=== PATIENT | female | born 2000 | race Two or more races ===

== ENCOUNTER 2024-08-06 02:20 | Emergency (ER) | payer OTHER, SELFPAY ==
[2024-08-06 02:42] VITALS: BP 110/76; PULSE 115; PULSE 99; RESP 20; TEMP 37.1; O2SAT 98; BMI 24.6
[2024-08-06 02:48] VITALS: BP 110/76; PULSE 99; RESP 20; TEMP 37.1; O2SAT 98
[2024-08-06 02:51] LABS: Appearance Urine Cloudy; Color Urine Dark Yellow; Glucose Urine UA Negative (Negative); Leukocyte Esterase Urine Trace (Negative); Nitrite Urine Negative (Negative); PH 5.5 (5.0-9.0); Specific Gravity - Urine >= 1.030 (1.005-1.025); UMIC TRIGGER UACC YES; Urine Blood Negative (Negative); Urine Ketones 15 mg/dL (Negative); Urine Protein 300 (3+) mg/dL (Neg-Trace)
[2024-08-06 02:52] LABS: UPreg QC Valid YES; Urine Pregnancy NEGATIVE (NEGATIVE)
[2024-08-06 03:02] LABS: Amphetamine Screen Urine Not Detected (Not Detect); Barbiturates, Urine Not Detected (Not Detect); Benzodiazepines Screen Urine Not Detected (Not Detect); Buprenorphine Scr Not Detected (Not Detect); Cannabinoid Screen Urine POSITIVE (Not Detect); Cocaine Screen Urine Not Detected (Not Detect); Fentanyl, urine Not Detected (Not Detect); Methadone Screen, Urine Not Detected (Not Detect); Opiate Screen Urine Not Detected (Not Detect); Oxycodone Screen Urine Not Detected (Not Detect); Phencyclidine Screen Urine Not Detected (Not Detect)
[2024-08-06 03:05] LABS: Bacteria Urine 3+ (None Seen); Granular Casts Urine Present; Hyaline Casts Urine >20 /LPF (0-2); Squamous Epithelial Cell Urine >20 /HPF (0-2); WBC Urine 0-5 /HPF (0-5)
[2024-08-06 03:09] LABS: MANUAL DIFF FLAG NO
[2024-08-06 03:10] LABS: Basophils Percent Auto 0.3 % (0-2); Eosinophils Absolute Auto 0.1 X10*3/uL (0.0-0.4); Hematocrit 41.7 % (37.0-47.0); Hemoglobin 13.2 g/dl (12.0-16.0); Imm Gran Abs Auto 0.04 X10*3/uL (0.00-0.03); Imm Gran Pct Auto 0.3 % (0.0-0.4); Lymphocytes Absolute Auto 2.5 X10*3/uL (1.2-4.9); Lymphocytes Percent Auto 21.9 % (20-40); Mean Corpuscular HGB Conc 31.7 g/dl (31.0-35.0); Mean Corpuscular Hemoglobin 24.6 pg (27.0-33.0); Mean Corpuscular Volume 77.7 fL (80.0-98.0); Mean Platelet Volume 11.2 fL (9.4-12.3); Monocytes Absolute Auto 0.7 X10*3/uL (0.1-1.2); Neutrophils Absolute Auto 8.2 x10*3/uL (2.0-8.3); Neutrophils Percent Auto 70.5 % (45-73); Platelet Count 296 X10*3/uL (160-400); Red Blood Count 5.37 X10*6/uL (4.20-5.50); Red Cell Distribution Width 17.2 % (11.0-16.0); White Blood Count 11.6 X10*3/uL (4.8-10.8)
[2024-08-06 03:26] LABS: Alanine Aminotransferase 49 U/L (0-31); Albumin Level 4.7 g/dL (3.5-5.0); Alkaline Phosphatase 56 U/L (39-117); Anion Gap 15 (12-20); Aspartate Amino Transferase 27 U/L (5-31); Bilirubin Total 0.7 mg/dL (0.0-1.0); Blood Urea Nitrogen 9 mg/dL (9-16); Calcium 9.9 mg/dL (8.4-10.2); Carbon Dioxide 22 mmol/L (22-29); Chloride 110 mmol/L (96-108); Creatinine Clr Calc Pharmacy 87.7; Estimated Glomerular Filt Rate > 60; Ethanol < 10 mg/dL; Glucose Random 98 mg/dL (60-115); Potassium 4.6 mmol/L (3.3-5.1); Sodium 142 mmol/L (135-145)
--- NOTE | 2024-08-06 05:35 | ED_ITS ---
HPI - Psych General Chief Complaint: Psychiatric Symptoms Stated Complaint: SI Statements Time Seen by Provider: 08/06/24 05:26 Source: patient and EMS Mode of arrival: EMS Limitations: no limitations History of Present Illness ED Provider: Dr. Arminda Ag HPI Narrative: Patient comes to the emergency room complaining of suicidal ideation. Patient states that she is very upset that she does not have custody of her children. Patient made suicidal statements. Patient tells me that she said this out of anger but did not been hurting her. Patient admits that in the past when she was in high school she considered suicide and attempted cutting herself and also strangling herself. Patient states that she was very frustrated today, she scratched her face to relief pressure. Patient denies taking any drugs or alcohol. Related Data Allergies Allergy/AdvReac Type Severity Reaction Status Date / Time banana [BANANA] Allergy Unknown ANAPHYLAXIS Unverified 08/06/24 03:05 broccoli [BROCCOLI] Allergy Unknown ANAPHYLAXIS Unverified 08/06/24 03:05 kiwi [KIWI] Allergy Unknown ANAPHYLAXIS Unverified 08/06/24 03:05 latex [LATEX] Allergy Unknown ANAPHYLAXIS Unverified 08/06/24 03:05 SEAFOOD Allergy Unknown ANAPHYLAXIS Uncoded 08/06/24 03:05 Review of Systems 2 Review of Systems: Constitutional : No Weight loss, No Fever, No Chills, No Night Sweats, No Fatigue, No Malaise ENT/Mouth : No Hearing loss, No Ear Pain, No Nasal Congestion, No Sinus Pain, No Hoarseness, No sore throat, No Rhinorrhea, No Swallowing Difficulty Eyes: No Eye Pain, No Swelling, No Redness, No Foreign Body, No Discharge, No Vision Changes Cardiovascular : No Chest Pain, No SOB, No Dyspnea on Exertion, No Orthopnea, No Edema, No Palpitations Respiratory : No Cough, No Sputum, No Wheezing, No Smoke Exposure, No Dyspnea Gastrointestinal : No Nausea, No Vomiting, No Diarrhea, No Constipation, No abdominal Pain, No Hematochezia, No Melena Genitourinary : no irregular bleeding, No Dysuria, No Urinary Frequency, No Hematuria, No Urinary Incontinence, No Urgency, No Flank Pain, No Urinary Flow Changes, No Hesitancy Musculoskeletal : No joint pain, No Myalgias, No Joint Swelling Skin : No Skin Lesions, No rash Neuro : No Weakness, No Numbness, No Paresthesias, No Loss of Consciousness, No Dizziness, No Headache Psych : Complaining of anxiety, depression, SI, no HI, complaining that she does not have custody of her kids Heme/Lymph: No Bruising, No Bleeding,No Lymphadenopathy Endocrine : No Polyuria, No Polydipsia, No Temperature Intolerance PMFSH Social History Social History Advance Directives: No Advance Directives Information Provided: Yes Do you have a plan to hurt others: No Plan Patient : No Physical Exam 2 Vital Signs: Vital Signs: Last Vital Signs Temp 98.7 F 08/06/24 02:48 Pulse 99 08/06/24 02:48 Resp 20 08/06/24 02:48 BP 110/76 08/06/24 02:48 Pulse Ox 98 08/06/24 02:48 O2 Del Method Room Air 08/06/24 02:48 BMI result Body Mass Index 24.6 Const: Other: Appearance: Alert. Oriented X3. No acute distress. Eyes: Pupils equal, round and reactive to light. ENT: Pharynx normal. Neck: Normal inspection. Neck supple. No lymph nodes noted. No crepitus CVS: Normal heart rate and rhythm. Pulses normal. Normal S1 and S2 Respiratory: No respiratory distress. Breath sounds normal. No Wheezing. No rales Abdomen: Soft and nontender. No rigidity. No distention. Skin: Skin warm and dry. Normal skin color. Normal skin turgor. Minor scratches to the face and forearms Extremities: No lower extremity edema. No Lacerations. No Rash Neuro: Oriented X 3. No motor deficit. No sensory deficit. Moving all extremities. No slurred speech. CN 2 through 12 grossly intact Psych: calm, cooperative, normal affect Medical Decision Making Medical Decision Making MDM Narrative: My interpretation of labs: Patient's white blood cell count 11.6. Chemistry within normal limits urine shows trace leukocyte esterase, large amount of squamous epithelial cells. Negative test, urine toxicology positive for THC, negative for other drugs or abuse or alcohol. -patient calm, cooperative -care team consult pending Patient is on a Section 12 -physician observation started at 05:40 Differential Diagnosis Differential Diagnoses: The differential diagnosis associated with the presentation includes (Anxiety, depression, PTSD) Admission/Observation Consideration of admission/observation: Escalation of care including admission/observation considered (Patient is on a Section 12 waiting to be seen by the care team) Lab Data MDM Lab Attestation statement: I reviewed the patient's lab results. 08/06/24 03:04 08/06/24 03:04 Labs: Lab Results 08/06/24 08/06/24 Range/Units 02:43 03:04 WBC 11.6 H (4.8-10.8) X10*3/uL RBC 5.37 (4.20-5.50) X10*6/uL Hgb 13.2 (12.0-16.0) g/dl Hct 41.7 (37.0-47.0) % MCV 77.7 L (80.0-98.0) fL MCH 24.6 L (27.0-33.0) pg MCHC 31.7 (31.0-35.0) g/dl RDW 17.2 H (11.0-16.0) % Plt Count 296 (160-400) X10*3/uL MPV 11.2 (9.4-12.3) fL Immature Gran % (Auto) 0.3 (0.0-0.4) % Neut % (Auto) 70.5 (45-73) % Lymph % (Auto) 21.9 (20-40) % [place] % (Auto) 6.0 (2-11) % Eos % (Auto) 1.0 (0-4) % Baso % (Auto) 0.3 (0-2) % Lymph # (Auto) 2.5 (1.2-4.9) X10*3/uL [place] # (Auto) 0.7 (0.1-1.2) X10*3/uL Eos # (Auto) 0.1 (0.0-0.4) X10*3/uL Baso # (Auto) 0.0 (0.0-0.2) X10*3/uL Abs Immat Gran (auto) 0.04 H (0.00-0.03) X10*3/uL Absolute Neuts (auto) 8.2 (2.0-8.3) x10*3/uL Absolute Nucleated RBC 0.000 (0.0-0.012) X10*3/uL Nucleated RBC % (auto) 0.0 (0.0-0.2) /100WBC Sodium 142 (135-145) mmol/L Potassium 4.6 (3.3-5.1) mmol/L Chloride 110 H (96-108) mmol/L Carbon Dioxide 22 (22-29) mmol/L Anion Gap 15 (12-20) BUN 9 (9-16) mg/dL Creatinine 0.83 (0.5-1.4) mg/dL Estim Creat Clear Calc 87.7 Estimated GFR > 60 Random Glucose 98 (60-115) mg/dL Calcium 9.9 (8.4-10.2) mg/dL Total Bilirubin 0.7 (0.0-1.0) mg/dL AST 27 (5-31) U/L ALT 49 H (0-31) U/L Alkaline Phosphatase 56 (39-117) U/L Total Protein 8.0 (6.5-8.0) g/dL Albumin 4.7 (3.5-5.0) g/dL Urine Color Dark Yellow Urine Appearance Cloudy Urine pH 5.5 (5.0-9.0) Ur Specific [place] >= 1.030 H (1.005-1.025) Urine Protein 300 (3+) H (Neg-Trace) mg/dL Urine Glucose (UA) Negative (Negative) mg/dL Urine Ketones 15 (Negative) mg/dL Urine Blood Negative (Negative) Urine Nitrite Negative (Negative) Ur Leukocyte Esterase Trace H (Negative) Urine RBC 3-5 H (0-2) /HPF Urine WBC 0-5 (0-5) /HPF Ur Squamous Epith Cells >20 (0-2) /HPF Urine Bacteria 3+ (None Seen) Hyaline Casts >20 (0-2) /LPF Granular Casts Present Urine Test NEGATIVE (NEGATIVE) Urine Opiates Screen Not Detected (Not Detect) Ur Buprenorphine Scrn Not Detected (Not Detect) ng/mL Ur Oxycodone Screen Not Detected (Not Detect) ng/mL Urine Methadone Screen Not Detected (Not Detect) ng/mL Urine Fentanyl Screen Not Detected (Not Detect) Ur Barbiturates Screen Not Detected (Not Detect) Ur Phencyclidine Scrn Not Detected (Not Detect) Ur Amphetamines Screen Not Detected (Not Detect) U Benzodiazepines Scrn Not Detected (Not Detect) Urine Cocaine Screen Not Detected (Not Detect) U Marijuana (THC) Screen POSITIVE H (Not Detect) Ethyl Alcohol < 10 mg/dL Critical Care Time Critical Care Time Critical Care Time: Yes Total Critical Care Time: 35 Attestation: I have personally provided critical care time. Time includes review of lab data, radiology results, discussion with consultants, and monitoring for potential decompensation. Intervention performed as documented. Discharge Plan Discharge Clinical Impression: Anxiety and depression, Suicidal ideation Patient Disposition: Home, Self-Care Interventions: [place]-Suicide Risk Severity Scale Last Done: 08/06/24 03:06 Print Language: Tamazight
[2024-08-06] MEDS: Acetaminophen 325 MG TABLET 650 MG PO (06:34)
--- NOTE | 2024-08-06 07:03 | PC.NURSE ---
Assumed care of patient at 0645, patient appears to be in no apparent distress this am, sitting upright in bed, offering no complaints at this time, calm and cooperative, pending CARE team eval at this time
--- NOTE | 2024-08-06 07:38 | PC.NURSE ---
Pt verbalizes frustrations regarding being here in the pod, she reports that she is not suicidal, nor homicidal, she reports she gets rage sometimes and was just trying to call her baby daddy to express said rage. She reports she only came to make sure she did not get in trouble with the DCF process for her children currently in DCF custody. Patient is calm and cooperative, tearful at times, requesting to go home. This RN educated patient that we are waiting for CARE team to assess her at this time, pt agreeable
--- NOTE | 2024-08-06 07:41 | PC.NURSE ---
RE: med rec Pt reports she takes Lacosamide 100mg BID and that she picks it up from [facility] on [address] She report she last took it yesterday at 2144
[2024-08-06] MEDS: Lacosamide 100 MG TABLET PO (08:07)
[2024-08-06 12:21] VITALS: BP 110/76; PULSE 99; RESP 20; TEMP 37.1; O2SAT 98
--- NOTE | 2024-08-07 09:57 | MHC.CARE ---
[facility] [place] PHP referral complete.
== END 2024-08-06 12:22 | disposition home or self-care (01) ==
PROVIDERS: Emergency Provider Emergency Medicine
DX: F33.1 Major depressive disorder, recurrent, moderate (principal); R45.851 Suicidal ideations; F41.1 Generalized anxiety disorder; F43.0 Acute stress reaction; Z51.81 Encounter for therapeutic drug level monitoring; Z79.899 Other long term (current) drug therapy
CPT/HCPCS: 36415; 80053; 80307; 81001; 81025; 85025; 99285

== ENCOUNTER 2024-10-25 19:03 | Emergency (ER) | payer OTHER, SELFPAY ==
--- NOTE | ~2024-10-25 | XR_ITS ---
CLINICAL HISTORY: cough, fever 1 view chest x-ray Comparison: None Findings: Lungs are clear without acute infiltrates. No pneumothorax. Heart size normal. No acute bony abnormalities. Impression: No acute processes This document has been electronically signed by: Mookie Ansari MD on 10/25/2024 20:57:16
--- NOTE | ~2024-10-25 | CT_ITS ---
CLINICAL HISTORY: head trauma CT head without contrast Comparison: None Findings: No intracranial mass, midline shift, hydrocephalus, or acute hemorrhage. No acute process in sinuses or mastoids. No acute bony abnormality. Impression: No acute intracranial process This document has been electronically signed by: Mookie Ansari MD on 10/25/2024 20:48:06
--- NOTE | ~2024-10-25 | CT_ITS ---
CLINICAL HISTORY: neck trauma CT cervical spine without contrast Comparison: None Findings: No acute fracture or dislocation is demonstrated. Posterior alignment is normal throughout. No significant degenerative change noted. No radiopaque foreign bodies noted. Nonspecific bilateral neck adenopathy noted. Multiple nodes measure up to 1.5 cm. Physical exam correlation recommended. Impression: No acute bony abnormality Nonspecific bilateral neck adenopathy Physical exam correlation will be needed This document has been electronically signed by: Mookie Ansari MD on 10/25/2024 20:48:41
[2024-10-25 19:16] VITALS: BP 111/72; BP 113/79; PULSE 101; PULSE 102; RESP 20; TEMP 37.1; O2SAT 97; BMI 32.6
--- NOTE | 2024-10-25 19:19 | ECG_ITS ---
Test Reason : SEIZURE Blood Pressure : */* mmHG Vent. Rate : 102 BPM Atrial Rate : 102 BPM P-R Int : 132 ms QRS Dur : 86 ms QT Int : 318 ms P-R-T Axes : 77 49 22 degrees QTcB Int : 414 ms Sinus tachycardia Otherwise normal ECG No previous ECGs available Referred By: Helena Villarreal Electronically Signed By: JUSTINA DREW
[2024-10-25] MEDS: 0.9 % Sodium Chloride 1,000 ML 999 ML IV (19:26)
--- NOTE | 2024-10-25 19:36 | ED_ITS ---
HPI - Seizure General Chief Complaint: Seizure Stated Complaint: seizure unknown duration, hx sz Time Seen by Provider: 10/25/24 19:07 Source: patient and EMS Mode of arrival: EMS Limitations: no limitations History of Present Illness ED Provider: JEN GARCIA Narrative: 24 yo female with PMH of seizures on lacosamide 200mg daily who reports she has been sick for 3 days with cough, diarrhea, fevers to 101, body aches and not feeling well. She has not missed her seizure med. She notes she might have had a seizure last night and thinks she hit her head on the door as she was incontinent of urine. She reportedly felt weird and dizzy tonight called 911 then she woke up on the floor - no incontinence today, no tongue biting. EMS said fire witnessed the seizure. No prolonged postictal state. Last seizure one year ago. 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 consciousness Witnessed: Yes - by EMS Trauma: Yes Seizure History: Yes Place: Home Possible Precipitating Event: other (viral syndrome) Associated symptoms: cough, fever/chills, malaise, weakness and other (diarrhea) Treatments prior to arrival: none Related Data Home Medications ?Medication ?Instructions ?Recorded ?Confirmed lacosamide 100 mg tablet 200 mg PO DAILY 08/06/24 08/06/24 Allergies Allergy/AdvReac Type Severity Reaction Status Date / Time banana [BANANA] Allergy Unknown ANAPHYLAXIS Verified 10/25/24 19:18 broccoli [BROCCOLI] Allergy Unknown ANAPHYLAXIS Verified 10/25/24 19:18 kiwi [KIWI] Allergy Unknown ANAPHYLAXIS Verified 10/25/24 19:18 latex [LATEX] Allergy Unknown ANAPHYLAXIS Verified 10/25/24 19:18 SEAFOOD Allergy Unknown ANAPHYLAXIS Uncoded 10/25/24 19:18 Review of Systems 2 Review of Systems: Constitutional : No Weight loss, pos Fever, pos Chills ENT/Mouth : No sore throat, pos Rhinorrhea Eyes: No Swelling, No Redness Cardiovascular : No Chest Pain, No SOB, NoEdema Respiratory :pos Cough, No Sputum, No Wheezing Gastrointestinal : Positive Nausea, no Vomiting, positive Diarrhea, no abdominal Pain, No Hematochezia, No Melena Genitourinary : No Dysuria, No Urinary Frequency, No Hematuria, No Urgency Musculoskeletal : No joint pain, No Myalgias, No Joint Swelling Skin : No Skin Lesions, No rash Neuro : No Weakness, No Numbness, No Dizziness, No Headache, pos seizure Psych : No Anxiety/Panic, No Depression All other systems reviewed and are negative. [facility] Past Medical History Attestation statement: The following information was validated with the patient. Source: old records reviewed Medical History (Updated 10/25/24 @ 20:38 by Helena Villarreal DO) Asthma Seizure Social History Social History (Updated 10/25/24 @ 19:55 by Helena Villarreal DO) Patient Tobacco Use Status: Never used Tobacco Advance Directives: No Advance Directives Information Provided: Yes Do you have a plan to hurt others: No Plan Physical Exam 2 Vital Signs: Vital Signs: Last Vital Signs Temp 98.8 F 10/25/24 20:15 Pulse 103 H 10/25/24 20:15 Resp 20 10/25/24 20:15 BP 115/83 10/25/24 20:15 Pulse Ox 99 10/25/24 20:15 O2 Del Method Room Air 10/25/24 20:15 BMI result Body Mass Index 32.6 Appearance: Alert. Oriented X3. No acute distress. Eyes: Pupils equal, round and reactive to light. ENT: Pharynx normal. no tongue biting Neck: Normal inspection. Neck supple. CVS: Normal heart rate and rhythm. Pulses normal. Respiratory: No respiratory distress. Breath sounds normal. Abdomen: Soft and non-tender. Skin: Skin warm and dry. Normal skin color. Normal skin turgor. Extremities: No lower extremity edema. No calf ttp Neuro: Oriented X 3. No motor deficit. No sensory deficit. CN2-12 intact Course Course Course Narrative: states she feels dizzy and feels she is going to have a seizure IV 2mg ativan Reevaluation(s) Reevaluation #1: signed out to Dr. Miller pending work up Reevaluation #2: low susp for seizure negative lactic acid Medications Administered Discontinued Medications Generic Name Dose Route Start Last Admin Trade Name Freq PRN Reason Stop Dose Admin Sodium Chloride 1,000 mls @ 999 mls/hr 10/25/24 19:19 10/25/24 19:26 Ns IV 10/25/24 20:19 999 mls/hr .Q1H1M ONE Administration Acetaminophen 1,000 mg in 100 mls @ 400 mls/hr 10/25/24 19:20 10/25/24 20:17 Ofirmev IV 10/25/24 19:34 400 mls/hr ONCE ONE Administration Lorazepam 2 mg 10/25/24 20:34 10/25/24 20:57 Lorazepam 2 Mg/Ml Vial IVPUSH 10/25/24 20:35 2 mg ONCE ONE Administration Medical Decision Making Medical Decision Making MDM Narrative: 24 yo female with PMH of asthma and seizures compliant with her lacosamide who reports seizure at home x 2 in setting of URI at this time basic labs, viral panel, IVF, CXR, CT head/cspine. She is at baseline on arrival and not postictal - possible seizure induced by viral infection Differential Diagnosis Differential Diagnoses: The differential diagnosis associated with the presentation includes influenza, viral illness causing seizure, dehydration Admission/Observation Consideration of admission/observation: Escalation of care including admission/observation considered out of window for tamiflu Lab Data [facility] Lab Attestation statement: I reviewed the patient's lab results. 10/25/24 19:34 10/25/24 19:34 Labs: Lab Results 10/25/24 10/25/24 Range/Units 19:34 19:35 WBC 4.6 L (4.8-10.8) X10*3/uL RBC 5.41 (4.20-5.50) X10*6/uL Hgb 13.7 (12.0-16.0) g/dl Hct 42.8 (37.0-47.0) % MCV 79.1 L (80.0-98.0) fL MCH 25.3 L (27.0-33.0) pg MCHC 32.0 (31.0-35.0) g/dl RDW 14.5 (11.0-16.0) % Plt Count 242 (160-400) X10*3/uL MPV 12.8 H (9.4-12.3) fL Immature Gran % (Auto) 0.4 (0.0-0.4) % Neut % (Auto) 65.2 (45-73) % Lymph % (Auto) 23.8 (20-40) % [place] % (Auto) 10.2 (2-11) % Eos % (Auto) 0.2 (0-4) % Baso % (Auto) 0.2 (0-2) % Lymph # (Auto) 1.1 L (1.2-4.9) X10*3/uL [place] # (Auto) 0.5 (0.1-1.2) X10*3/uL Eos # (Auto) 0.0 (0.0-0.4) X10*3/uL Baso # (Auto) 0.0 (0.0-0.2) X10*3/uL Abs Immat Gran (auto) 0.02 (0.00-0.03) X10*3/uL Absolute Neuts (auto) 3.0 (2.0-8.3) x10*3/uL Absolute Nucleated RBC 0.000 (0.0-0.012) X10*3/uL Nucleated RBC % (auto) 0.0 (0.0-0.2) /100WBC Sodium 138 (135-145) mmol/L Potassium 3.6 D (3.3-5.1) mmol/L Chloride 108 (96-108) mmol/L Carbon Dioxide 20 L (22-29) mmol/L Anion Gap 14 (12-20) BUN 6 L (9-16) mg/dL Creatinine 0.72 (0.5-1.4) mg/dL Estim Creat Clear Calc 115.9 Estimated GFR > 60 Random Glucose 108 (60-115) mg/dL Lactic Acid 0.9 (0.5-2.0) mmol/L Calcium 9.0 D (8.4-10.2) mg/dL Magnesium 2.0 (1.6-2.6) mg/dL Total Bilirubin 0.5 (0.0-1.0) mg/dL Direct Bilirubin 0.2 (0.0-0.5) mg/dL AST 22 (5-31) U/L ALT 23 (0-31) U/L Alkaline Phosphatase 63 (39-117) U/L Troponin I High Sens < 2.7 (<3.5-17.0) ng/L Total Protein 8.2 H (6.5-8.0) g/dL Albumin 4.4 (3.5-5.0) g/dL Lipase 21 (8-78) U/L Influenza Type A (PCR) POSITIVE A (Negative) Influenza Type B (PCR) NEGATIVE (Negative) RSV RNA Qual (PCR) NEGATIVE (Negative) SARS-CoV-2 RNA (RT-PCR) NEGATIVE (Negative) Independent Interpretation I performed an independent interpretation of an: EKG, Plain X-Ray (normal ) and CT Scan (no trauma) Interpretation: Rate: 102 Rhythm: sinus tachycardia [place]: normal Normal P waves. Normal [place]CEL[place]. Normal QRS complex. ST T wave : normal no SHAKIRA qTC: 414 prior studies: no acute ischemia The study has been interpreted contemporaneously by me. . Radiology Impression Discussion of test interpretation with radiology: I have reviewed the radiologist's reading. Independent Historian Clinical information obtained from an independent historian. History obtained from or confirmed by: EMS External Record Review External record reviewed: Outpatient record Discharge Plan Discharge Clinical Impression: Epileptic seizure, Influenza A Patient Disposition: Still a Patient Instructions: Influenza (ED), Epilepsy (ED) Additional Instructions: chest xray normal CT scans of head and neck normal labs reassuring you are positive for the flu you need to rest and stay hydrated, stay with responsible adult take your medications return for worsening symptoms - breathing, pain, unable to eat or drink, repeat seizures or any other concerns Prescriptions: No Action lacosamide 100 mg tablet 200 mg PO DAILY Print Language: Macedonian
[2024-10-25 19:50] LABS: MANUAL DIFF FLAG NO
[2024-10-25 19:52] LABS: Basophils Percent Auto 0.2 % (0-2); Eosinophils Percent Auto 0.2 % (0-4); Hematocrit 42.8 % (37.0-47.0); Hemoglobin 13.7 g/dl (12.0-16.0); Imm Gran Abs Auto 0.02 X10*3/uL (0.00-0.03); Imm Gran Pct Auto 0.4 % (0.0-0.4); Lymphocytes Absolute Auto 1.1 X10*3/uL (1.2-4.9); Lymphocytes Percent Auto 23.8 % (20-40); Mean Corpuscular Hemoglobin 25.3 pg (27.0-33.0); Mean Corpuscular Volume 79.1 fL (80.0-98.0); Mean Platelet Volume 12.8 fL (9.4-12.3); Monocytes Absolute Auto 0.5 X10*3/uL (0.1-1.2); Monocytes Percent Auto 10.2 % (2-11); Neutrophils Percent Auto 65.2 % (45-73); Platelet Count 242 X10*3/uL (160-400); Red Blood Count 5.41 X10*6/uL (4.20-5.50); Red Cell Distribution Width 14.5 % (11.0-16.0); White Blood Count 4.6 X10*3/uL (4.8-10.8)
[2024-10-25 20:13] LABS: Lactic Acid 0.9 mmol/L (0.5-2.0)
[2024-10-25 20:15] VITALS: BP 115/83; PULSE 103; RESP 20; TEMP 37.1; O2SAT 99
[2024-10-25 20:17] LABS: Alanine Aminotransferase 23 U/L (0-31); Albumin Level 4.4 g/dL (3.5-5.0); Alkaline Phosphatase 63 U/L (39-117); Anion Gap 14 (12-20); Aspartate Amino Transferase 22 U/L (5-31); Bilirubin Direct 0.2 mg/dL (0.0-0.5); Bilirubin Total 0.5 mg/dL (0.0-1.0); Blood Urea Nitrogen 6 mg/dL (9-16); Carbon Dioxide 20 mmol/L (22-29); Chloride 108 mmol/L (96-108); Creatinine Clr Calc Pharmacy 115.9; Estimated Glomerular Filt Rate > 60; Glucose Random 108 mg/dL (60-115); Lipase 21 U/L (8-78); Potassium 3.6 mmol/L (3.3-5.1); Sodium 138 mmol/L (135-145); Total Protein 8.2 g/dL (6.5-8.0)
[2024-10-25] MEDS: Acetaminophen 1,000 MG/100 ML PIGGYBACK 400 MG IV (20:17)
[2024-10-25 20:26] LABS: Troponin-I High Sensitivity < 2.7 ng/L (<3.5-17.0)
--- NOTE | 2024-10-25 20:32 | PC.NURSE ---
Addendum entered by Sinan Guerra RN 10/25/24 20:57: scanned into mar Original Note: 2mg IV ativan given to patient per Phil verbal order. order in place but no visible in MAR. pharmacy contacted. pt states dizziness and room spinning resolved after administration of med.
[2024-10-25 20:35] LABS: Influenza A PCR POSITIVE (Negative); Influenza B PCR NEGATIVE (Negative); Resp Syncy Virus RNA Qual PCR NEGATIVE (Negative); SARS COV2 PCR INHOUSE NEGATIVE (Negative)
[2024-10-25] MEDS: LORazepam 2 MG/ML VIAL IVPUSH (20:57)
[2024-10-25 21:33] VITALS: BP 97/63; PULSE 102; RESP 19; TEMP 37.6; O2SAT 97
[2024-10-25 23:15] VITALS: BP 96/62; PULSE 99; RESP 22; TEMP 37.2; O2SAT 97
== END 2024-10-25 23:49 | disposition home or self-care (01) ==
PROVIDERS: Emergency Medicine; Emergency Provider Emergency Medicine Emergency Medical Services
DX: J10.1 Influenza due to other identified influenza virus with other respiratory manifestations (principal); G40.909 Epilepsy, unspecified, not intractable, without status epilepticus; R42 Dizziness and giddiness; Z03.818 Encounter for observation for suspected exposure to other biological agents ruled out; J45.909 Unspecified asthma, uncomplicated
CPT/HCPCS: 0241U; 70450; 71045; 72125; 80048; 80076; 83605; 83690; 83735; 84484; 85025; 93005; 96361; 96365; 96366; 96375; 99284; 99285; J0131; J2060

== ENCOUNTER → 2024-10-25 19:19 | Outpatient (BNV) | payer OTHER, SELFPAY | PROVIDERS: Emergency Provider Emergency Medicine Emergency Medical Services; Visit Provider Internal Medicine | DX: R00.0 Tachycardia, unspecified (principal) | CPT/HCPCS: 93010 ==

== ENCOUNTER → 2024-10-25 19:19 | Outpatient (BNV) | payer OTHER, SELFPAY | PROVIDERS: Emergency Provider Emergency Medicine; Visit Provider Radiology Diagnostic Radiology | DX: R59.0 Localized enlarged lymph nodes (principal); S09.90XA Unspecified injury of head, initial encounter; R05.9 Cough, unspecified; R50.9 Fever, unspecified | CPT/HCPCS: 70450; 71045; 72125 ==

== ENCOUNTER 2025-01-04 19:46 | Emergency (ER) | payer OTHER, SELFPAY ==
[2025-01-04 19:53] VITALS: BP 118/22; BP 137/80; PULSE 80; PULSE 90; RESP 20; TEMP 36.9; O2SAT 98; BMI 33.0
--- NOTE | 2025-01-04 20:08 | ED.GENADULT ---
HPI - General Adult General Chief complaint: Dyspnea Stated complaint: sob, siezure last night , coughing non stop Time Seen by Provider: 01/04/25 22:58 Source: patient Mode of arrival: ambulatory Limitations: no limitations History of Present Illness ED Provider: HPI narrative: Patient's history of anxiety, epilepsy, pseudo seizures, asthma does not have any PCP and taking lacosamide for epilepsy dose was decreased during 7 months ago but has not been increased her dose yet by neurologist comes here for difficulty to sleep and having frequent questionable seizures in the night when when she gets tonic-clonic seizure lasting for 1-2 minute with incontinence happening almost every night not sure if it is because of anxiety arrival seizure patient does not remember patient's will be seeing neurologist in next few days also complaining of dry cough and cold symptoms for last few days wheezing does not have any inhaler at home Related Data Home Medications ?Medication ?Instructions ?Recorded ?Confirmed lacosamide 100 mg tablet 200 mg PO DAILY 08/06/24 08/06/24 Previous Rx's ?Medication ?Instructions ?Recorded acetaminophen 500 mg tablet 1,000 mg (2 x 500 mg) PO Q6H PRN 10/25/24 (Tylenol Extra Strength) fever or pain #20 tabs ibuprofen 400 mg tablet 400 mg PO TID PRN fever or pain 10/25/24 #30 tabs ondansetron 4 mg disintegrating 4 mg PO Q6-8H PRN nausea and 10/25/24 tablet vomiting #14 tabs albuterol sulfate 90 mcg/actuation 2 puff inhalation Q6H PRN 01/04/25 aerosol inhaler shortness of breath or wheezing #8.5 grams lorazepam 0.5 mg tablet (Ativan) 0.5 mg PO BEDTIME PRN 01/04/25 anxiety/sleep #20 tabs prednisone 20 mg tablet 40 mg (2 x 20 mg) PO DAILY #10 tabs 01/04/25 Allergies Allergy/AdvReac Type Severity Reaction Status Date / Time banana [BANANA] Allergy Unknown ANAPHYLAXIS Verified 01/04/25 19:59 broccoli [BROCCOLI] Allergy Unknown ANAPHYLAXIS Verified 01/04/25 19:59 kiwi [KIWI] Allergy Unknown ANAPHYLAXIS Verified 01/04/25 19:59 latex [LATEX] Allergy Unknown ANAPHYLAXIS Verified 01/04/25 19:59 SEAFOOD Allergy Unknown ANAPHYLAXIS Uncoded 01/04/25 19:59 Review of Systems Review of Systems: Yes all other systems are reviewed and are negative [facility] Past Medical History Medical History Asthma Seizure Social History Social History Patient Tobacco Use Status: Never used Tobacco Substance Use Type: Marijuana Advance Directives: No Advance Directives Information Provided: Yes Do you have a plan to hurt others: No Plan Physical Exam ED Vital Signs: Vital Signs - 24 hr 01/04/25 19:53 01/04/25 22:39 01/05/25 00:00 Temperature 98.4 F 98.0 F 97.9 F Pulse Rate 90 83 86 Respiratory Rate 20 14 16 Blood Pressure 137/80 123/79 115/81 Pulse Oximetry 98 100 97 Oxygen Delivery Method Room Air Room Air Room Air 01/05/25 00:20 Temperature 97.9 F Pulse Rate 86 Respiratory Rate 16 Blood Pressure 115/81 Pulse Oximetry 97 Oxygen Delivery Method Room Air BMI result Body Mass Index 33.0 Appearance: Alert. Oriented X3. No acute distress. Eyes: PERRLA, No Nystagmus ENT: Pharynx normal. Oral Mucosa moist no tongue bite Neck: Normal inspection. Neck supple. CVS: Normal heart rate and rhythm. Pulses normal. Respiratory: No respiratory distress. Equal air entry bilateral, no wheezing/rales/rhonchi prolonged expiration Abdomen: Soft and nontender. Bowel sounds are present, no mass palpable, no CVA tenderness Skin: Skin warm and dry. Normal skin color. Normal skin turgor. Extremities: No lower extremity edema. No calf tenderness Neuro: Oriented X 3. No motor deficit. No sensory deficit.No cerebellar signs , cranial nerves II-XII intact Course Course Course Narrative: RME: 24-year-old female presents to ED for URI symptoms for 7 days. Patient states car shortness of breath with the past 7 days. Patient states her children are also sick. Patient is secondary complaint is having seizures. Patient has history of seizure. Patient states when she sick or strep she has seizures. Presently alert oriented x3. Positive for significant for coughing. Labs SARs strep chest x-ray ordered. Medications Administered Discontinued Medications Generic Name Dose Route Start Last Admin Trade Name Freq PRN Reason Stop Dose Admin Albuterol Sulfate 4 puff 01/04/25 23:51 01/05/25 00:03 Albuterol Sulfate 90 Mcg 8 Gm Inhaler INHALE 01/04/25 23:52 4 puff ONCE ONE Administration Lorazepam 1 mg 01/04/25 23:51 01/05/25 00:15 Lorazepam 1 Mg Tablet PO 01/04/25 23:52 1 mg ONCE ONE Administration Prednisone 40 mg 01/04/25 23:51 01/05/25 00:15 Prednisone 20 Mg Tablet PO 01/04/25 23:52 40 mg ONCE ONE Administration Medical Decision Making Medical Decision Making [facility] Narrative: Patient likely has a anxiety/epilepsy/and asthma labs are stable chest x-ray negative for pneumonia will discharge patient home on inhaler and prednisone advised to continue lacosamide further seizure in asked neurologist to increase the dose will also give lorazepam Differential Diagnosis Differential Diagnoses: The differential diagnosis associated with the presentation includes Anxiety induced seizure/epilepsy/asthma/bronchitis Lab Data [facility] Lab Attestation statement: I reviewed the patient's lab results. 01/04/25 20:32 01/04/25 20:32 Labs: Lab Results 01/04/25 Range/Units 20:32 WBC 9.3 (4.8-10.8) X10*3/uL RBC 5.00 (4.20-5.50) X10*6/uL Hgb 12.9 (12.0-16.0) g/dl Hct 40.5 (37.0-47.0) % MCV 81.0 (80.0-98.0) fL MCH 25.8 L (27.0-33.0) pg MCHC 31.9 (31.0-35.0) g/dl RDW 15.9 (11.0-16.0) % Plt Count 313 D (160-400) X10*3/uL MPV 12.3 (9.4-12.3) fL Immature Gran % (Auto) 0.2 (0.0-0.4) % Neut % (Auto) 58.2 (45-73) % Lymph % (Auto) 26.6 (20-40) % [place] % (Auto) 6.1 (2-11) % Eos % (Auto) 8.1 H (0-4) % Baso % (Auto) 0.8 (0-2) % Lymph # (Auto) 2.5 (1.2-4.9) X10*3/uL [place] # (Auto) 0.6 (0.1-1.2) X10*3/uL Eos # (Auto) 0.8 H (0.0-0.4) X10*3/uL Baso # (Auto) 0.1 (0.0-0.2) X10*3/uL Abs Immat Gran (auto) 0.02 (0.00-0.03) X10*3/uL Absolute Neuts (auto) 5.4 (2.0-8.3) x10*3/uL Absolute Nucleated RBC 0.000 (0.0-0.012) X10*3/uL Nucleated RBC % (auto) 0.0 (0.0-0.2) /100WBC Sodium 140 (135-145) mmol/L Potassium 3.7 (3.3-5.1) mmol/L Chloride 110 H (96-108) mmol/L Carbon Dioxide 22 (22-29) mmol/L Anion Gap 12 (12-20) BUN 5 L (9-16) mg/dL Creatinine 0.66 (0.5-1.4) mg/dL Estim Creat Clear Calc 127.4 Estimated GFR > 60 Random Glucose 84 (60-115) mg/dL Calcium 9.1 (8.4-10.2) mg/dL Magnesium 2.1 (1.6-2.6) mg/dL Total Bilirubin 0.7 (0.0-1.0) mg/dL AST 18 (5-31) U/L ALT 27 (0-31) U/L Alkaline Phosphatase 60 (39-117) U/L Total Protein 7.3 (6.5-8.0) g/dL Albumin 4.3 (3.5-5.0) g/dL Beta HCG, Quant < 2 mIU/mL Urine Color Dark Yellow Urine Appearance Cloudy Urine pH 6.0 (5.0-9.0) Ur Specific [place] 1.025 (1.005-1.025) Urine Protein Trace (Neg-Trace) mg/dL Urine Glucose (UA) Negative (Negative) mg/dL Urine Ketones Trace (Negative) mg/dL Urine Blood Moderate (2+) H (Negative) Urine Nitrite Negative (Negative) Ur Leukocyte Esterase Small (1+) H (Negative) Urine RBC 3-5 H (0-2) /HPF Urine WBC 6-10 (0-5) /HPF Ur Squamous Epith Cells 6-10 (0-2) /HPF Urine Bacteria 2+ (None Seen) Hyaline Casts 0-2 (0-2) /LPF Urine Test NEGATIVE (NEGATIVE) Influenza Type A (PCR) NEGATIVE (Negative) Influenza Type B (PCR) NEGATIVE (Negative) RSV RNA Qual (PCR) NEGATIVE (Negative) SARS-CoV-2 RNA (RT-PCR) NEGATIVE (Negative) S. pyogenes GrpA NASIM Negative (Negative) Independent Interpretation I performed an independent interpretation of an: Plain X-Ray Radiology Impression Discussion of test interpretation with radiology: I have reviewed the radiologist's reading. Radiologist Impression: NAD Discharge Plan Discharge Clinical Impression: Asthma, Epilepsy, Anxiety Patient Disposition: Home, Self-Care Instructions: Asthma (ED), Epilepsy (ED), Anxiety (ED) Additional Instructions: Continue your seizure medication and follow with neurologist Take lorazepam 0.5 mg daily at night as needed for sleep and anxiety Albuterol inhaler and prednisone for asthma as prescribed Follow with your PCP Prescriptions: New albuterol sulfate 90 mcg/actuation HFA aerosol inhaler 2 puff inhalation Q6H PRN (Reason: shortness of breath or wheezing) Qty: 8.5 0RF prednisone 20 mg tablet 40 mg PO DAILY Qty: 10 0RF lorazepam [Ativan] 0.5 mg tablet 0.5 mg PO BEDTIME PRN (Reason: anxiety/sleep) Qty: 20 0RF No Action lacosamide 100 mg tablet 200 mg PO DAILY acetaminophen [Tylenol Extra Strength] 500 mg tablet 1,000 mg PO Q6H PRN (Reason: fever or pain) Qty: 20 0RF ibuprofen 400 mg tablet 400 mg PO TID PRN (Reason: fever or pain) Qty: 30 0RF ondansetron 4 mg tablet,disintegrating 4 mg PO Q6-8H PRN (Reason: nausea and vomiting) Qty: 14 0RF Interventions: ED Discharge Assessment Last Done: 01/05/25 00:20 Discharge Date/Time: 01/05/25 00:40 Print Language: Faroese
[2025-01-04 20:43] LABS: MANUAL DIFF FLAG NO
[2025-01-04 20:45] LABS: Basophils Absolute Auto 0.1 X10*3/uL (0.0-0.2); Basophils Percent Auto 0.8 % (0-2); Eosinophils Absolute Auto 0.8 X10*3/uL (0.0-0.4); Eosinophils Percent Auto 8.1 % (0-4); Hematocrit 40.5 % (37.0-47.0); Hemoglobin 12.9 g/dl (12.0-16.0); Imm Gran Abs Auto 0.02 X10*3/uL (0.00-0.03); Imm Gran Pct Auto 0.2 % (0.0-0.4); Lymphocytes Absolute Auto 2.5 X10*3/uL (1.2-4.9); Lymphocytes Percent Auto 26.6 % (20-40); Mean Corpuscular HGB Conc 31.9 g/dl (31.0-35.0); Mean Corpuscular Hemoglobin 25.8 pg (27.0-33.0); Mean Platelet Volume 12.3 fL (9.4-12.3); Monocytes Absolute Auto 0.6 X10*3/uL (0.1-1.2); Monocytes Percent Auto 6.1 % (2-11); Neutrophils Absolute Auto 5.4 x10*3/uL (2.0-8.3); Neutrophils Percent Auto 58.2 % (45-73); Platelet Count 313 X10*3/uL (160-400); Red Cell Distribution Width 15.9 % (11.0-16.0); White Blood Count 9.3 X10*3/uL (4.8-10.8)
[2025-01-04 20:46] LABS: Appearance Urine Cloudy; Color Urine Dark Yellow; Glucose Urine UA Negative (Negative); Leukocyte Esterase Urine Small (1+) (Negative); Nitrite Urine Negative (Negative); Specific Gravity - Urine 1.025 (1.005-1.025); UMIC TRIGGER UACC YES; Urine Blood Moderate (2+) (Negative); Urine Ketones Trace mg/dL (Negative); Urine Protein Trace mg/dL (Neg-Trace)
[2025-01-04 20:47] LABS: UPreg QC Valid YES; Urine Pregnancy NEGATIVE (NEGATIVE)
[2025-01-04 20:55] LABS: IDNOW Serial# 6674DD1D; Strep A Nucleic Acid Negative (Negative)
[2025-01-04 20:57] LABS: Bacteria Urine 2+ (None Seen); Hyaline Casts Urine 0-2 /LPF (0-2); UACC Culture Trigger YES
[2025-01-04 20:58] LABS: Alanine Aminotransferase 27 U/L (0-31); Albumin Level 4.3 g/dL (3.5-5.0); Alkaline Phosphatase 60 U/L (39-117); Anion Gap 12 (12-20); Aspartate Amino Transferase 18 U/L (5-31); Bilirubin Total 0.7 mg/dL (0.0-1.0); Blood Urea Nitrogen 5 mg/dL (9-16); Calcium 9.1 mg/dL (8.4-10.2); Carbon Dioxide 22 mmol/L (22-29); Chloride 110 mmol/L (96-108); Creatinine Clr Calc Pharmacy 127.4; Estimated Glomerular Filt Rate > 60; Glucose Random 84 mg/dL (60-115); Magnesium 2.1 mg/dL (1.6-2.6); Potassium 3.7 mmol/L (3.3-5.1); Sodium 140 mmol/L (135-145); Total Protein 7.3 g/dL (6.5-8.0)
[2025-01-04 21:05] LABS: HCG Quantitative < 2 mIU/mL
[2025-01-04 22:39] VITALS: BP 123/79; PULSE 83; RESP 14; TEMP 36.7; O2SAT 100
[2025-01-04 22:55] LABS: Influenza A PCR NEGATIVE (Negative); Influenza B PCR NEGATIVE (Negative); Resp Syncy Virus RNA Qual PCR NEGATIVE (Negative); SARS COV2 PCR INHOUSE NEGATIVE (Negative)
[2025-01-05] VITALS: BP 115/81; PULSE 86; RESP 16; TEMP 36.6; O2SAT 97
[2025-01-05] MEDS: Albuterol Sulfate 90 MCG 8 GM INHALER 4 PUFF INHALE (00:03)
--- NOTE | 2025-01-05 00:14 | MHC.EDTECH ---
This pct assumed care of Patient at 2300 ,vitals taken ,RN Chadwick said not to check ,Patient poc because it was check in blood work .
[2025-01-05] MEDS: LORazepam 1 MG TABLET PO (00:15)
[2025-01-05] MEDS: predniSONE 20 MG TABLET 40 MG PO (00:15)
[2025-01-05 00:20] VITALS: BP 115/81; PULSE 86; RESP 16; TEMP 36.6; O2SAT 97
== END 2025-01-05 00:40 | disposition home or self-care (01) ==
PROVIDERS: Physician Assistant; Emergency Provider Internal Medicine; PCP Internal Medicine
DX: G40.909 Epilepsy, unspecified, not intractable, without status epilepticus (principal); R06.02 Shortness of breath; R05.9 Cough, unspecified; F41.9 Anxiety disorder, unspecified; J45.909 Unspecified asthma, uncomplicated; Z03.818 Encounter for observation for suspected exposure to other biological agents ruled out; Z79.899 Other long term (current) drug therapy
CPT/HCPCS: 0241U; 36415; 80053; 81001; 81025; 83735; 84702; 85025; 87086; 87651; 99283; 99284

== ENCOUNTER 2025-08-29 21:46 | Emergency (ER) | payer OTHER, SELFPAY ==
--- NOTE | 2025-08-29 | ECG_ITS ---
Test Reason : CP Blood Pressure : */* mmHG Vent. Rate : 68 BPM Atrial Rate : 68 BPM P-R Int : 158 ms QRS Dur : 82 ms QT Int : 392 ms P-R-T Axes : 53 53 30 degrees QTcB Int : 416 ms Normal sinus rhythm Normal ECG When compared with ECG of 25-Oct-2024 19:39, Vent. rate has decreased by 34 bpm Referred By: Generic ED Physician Electronically Signed By: ANAM MALCOLM MD
--- NOTE | ~2025-08-29 | XR_ITS ---
CLINICAL HISTORY: cp 2 view chest x-ray Comparison: CR - XR CHEST 1V - 10/25/24 20:13 EST Findings: The lungs are clear. Normal size heart. No acute fracture. IMPRESSION: 1. No acute findings. This document has been electronically signed by: Temo Soriano MD, PHD on 08/29/2025 23:45:49
[2025-08-29 21:53] VITALS: BP 117/63; PULSE 70; RESP 19; TEMP 36.7; O2SAT 96; BMI 35.2
--- NOTE | 2025-08-29 22:15 | ED.CHESTPAIN ---
HPI - Chest Pain General Chief Complaint: Chest Pain Stated Complaint: CP for past two weeks Time Seen by Provider: 08/29/25 22:09 Source: patient and family Mode of arrival: ambulatory Limitations: no limitations History of Present Illness ED Provider: Dr. Nancy Govea HPI narrative: 5-year-old female who presents to the ED for evaluation of intermittent chest pain that has been present ?for a long time? and acutely worsened today. Episodes typically last < 1 minute and self-resolve, but since ~12:00 today the pain has recurred every few minutes and, at times, became continuous and severe enough that the patient ?dropped to the floor? while at work. Patient became emotionally distressed, called someone crying, and stated she needed to go to the hospital due to inability to tolerate the pain. Describes the pain as stabbing, ?squished,? and occasionally associated with a sensation of not being able to breathe. No clear provoking or relieving factors noted; pain does not consistently worsen with movement, palpation, eating, or deep breaths. She walks outside daily in cold air and reports high stress levels, both of which she wonders may contribute. No prior medical evaluation for this pain. No home analgesics taken. Relevant background: seizure disorder treated with lacosamide (admits to occasionally missing 1?2 days of doses); asthma (has inhaler, no recent attacks); depression, anxiety, PTSD. Last seizure was ?last night.? Denies fever. Reports occasional cough and intermittent runny nose. LMP ~3 months ago; patient denies possibility of . No medication allergies. Related Data Home Medications ?Medication ?Instructions ?Recorded ?Confirmed lacosamide 100 mg tablet 200 mg PO DAILY 08/06/24 08/06/24 Previous Rx's ?Medication ?Instructions ?Recorded acetaminophen 500 mg tablet 1,000 mg (2 x 500 mg) PO Q6H PRN 10/25/24 (Tylenol Extra Strength) fever or pain #20 tabs ibuprofen 400 mg tablet 400 mg PO TID PRN fever or pain 10/25/24 #30 tabs ondansetron 4 mg disintegrating 4 mg PO Q6-8H PRN nausea and 10/25/24 tablet vomiting #14 tabs albuterol sulfate 90 mcg/actuation 2 puff inhalation Q6H PRN 01/04/25 aerosol inhaler shortness of breath or wheezing #8.5 grams lorazepam 0.5 mg tablet (Ativan) 0.5 mg PO BEDTIME PRN 01/04/25 anxiety/sleep #20 tabs prednisone 20 mg tablet 40 mg (2 x 20 mg) PO DAILY #10 tabs 01/04/25 Allergies Allergy/AdvReac Type Severity Reaction Status Date / Time banana (BANANA) Allergy Unknown ANAPHYLAXIS Verified 08/29/25 21:59 broccoli (BROCCOLI) Allergy Unknown ANAPHYLAXIS Verified 08/29/25 21:59 kiwi (KIWI) Allergy Unknown ANAPHYLAXIS Verified 08/29/25 21:59 latex (LATEX) Allergy Unknown ANAPHYLAXIS Verified 08/29/25 21:59 SEAFOOD Allergy Unknown ANAPHYLAXIS Uncoded 08/29/25 21:59 Review of Systems Review of Systems: as per HPI, full review of systems performed and negative but for the above mentioned pertinent positives and negatives. [facility] Past Medical History Medical History Asthma Seizure Social History Social History Patient Tobacco Use Status: Never used Tobacco Smoked in Last 30 Days: No Use of substances other than those prescribed or required for medical reasons: Yes Substance Use Type: Marijuana Advance Directives: No Advance Directives Information Provided: No Physical Exam Exam: Exam: GENERAL: Well-Appearing, conversant, no acute distress. SKIN: Normal skin color for ethnicity, warm, dry, no rashes noted. HEENT:? Normocephalic, atraumatic, no stridor, posterior oropharynx nonerythematous, dentition intact, EOMI. NECK: Soft, supple, full ROM, midline structures nontender, no step-offs, no deformities, no lymphadenopathy. CHEST: Heart regular rate and rhythm, no murmurs, symmetric chest rise and fall, no chest wall tenderness to palpation, no crepitus. PULMONARY: Clear to auscultation bilaterally, no labored breathing, no wheezes/rhales/rhonchi. ABDOMINAL: Soft, nondistended, nontender, positive bowel sounds in all quadrants. : Deferred. MUSCULOSKELETAL: Normal tone, full range of motion, no deformities, no peripheral edema. NEURO: Alert and oriented x3, CN II through XII intact, equal strength and sensation bilateral upper and lower extremities, no focal neurologic deficits.? PSYCHIATRIC: Normal affect, fluid speech, good eye contact and appropriate demeanor. Vital Signs: Vital Signs: Last Vital Signs Temp 98.5 F 08/30/25 01:05 Pulse 76 08/30/25 01:05 Resp 18 08/30/25 01:05 BP 111/65 08/30/25 01:05 Pulse Ox 100 08/30/25 01:05 O2 Del Method Room Air 08/30/25 01:05 BMI result Body Mass Index 35.2 Medications Administered Discontinued Medications Generic Name Dose Route Start Last Admin Trade Name Freq PRN Reason Stop Dose Admin Ibuprofen 600 mg 08/29/25 22:55 08/29/25 23:56 Ibuprofen 600 Mg Tablet PO 08/29/25 22:56 600 mg ONCE ONE Administration Medical Decision Making Medical Decision Making MDM Narrative: 25-year-old female with intermittent, worsening chest pain most consistent with musculoskeletal chest wall pain/costochondritis; life-threatening etiologies being ruled out. Normal EKG, normal vitals, benign exam. Differential diagnosis includes, but is not limited to, acute coronary syndrome, musculoskeletal pain, pneumothorax, GERD, pleurisy, pulmonary embolism, dissection, among others. Problem #1: Chest wall pain / suspected costochondritis Assessment: Likely inflammation of rib/chest wall based on exam and history; low suspicion for cardiac or pulmonary embolic cause given normal EKG, vitals, and lack of systemic illness. Plan: - Trial NSAID/anti-inflammatory analgesia provided in ED for symptomatic relief. - Continue monitoring while awaiting blood work; discharge home if labs unrevealing and symptoms improve. - Return precautions: worsening or persistent pain, new shortness of breath, syncope, or other concerning symptoms. Problem #2: Seizure disorder Assessment: Chronic condition; patient taking lacosamide with occasional missed doses; last seizure last night. Plan: - Reinforce medication adherence; continue lacosamide as prescribed. - No acute intervention required in ED today. Problem #3: Asthma (history) Assessment: No current exacerbation; carries rescue inhaler, has not needed in >4 years. Plan: - No acute treatment needed today. Workup is reassuring. Patient is PERC negative, heart score 0, low risk for major adverse cardiac event in the next 30 days based on heart score. Using shared decision making, plan for discharge home to follow-up with primary care and/or specialist. Patient understands and agrees with plan for discharge. Discharged home in stable condition. Differential Diagnosis Differential Diagnoses: The differential diagnosis associated with the presentation includes (as above) Admission/Observation Consideration of admission/observation: Escalation of care including admission/observation considered Lab Data MDM Lab Attestation statement: I reviewed the patient's lab results. 08/29/25 22:38 08/29/25 22:38 Labs: Lab Results 08/29/25 Range/Units 22:38 WBC 10.2 (4.8-10.8) X10*3/uL RBC 4.51 (4.20-5.50) X10*6/uL Hgb 11.8 L (12.0-16.0) g/dl Hct 37.4 (37.0-47.0) % MCV 82.9 (80.0-98.0) fL MCH 26.2 L (27.0-33.0) pg MCHC 31.6 (31.0-35.0) g/dl RDW 14.1 (11.0-16.0) % Plt Count 289 (160-400) X10*3/uL MPV 12.0 (9.4-12.3) fL Immature Gran % (Auto) 0.3 (0.0-0.4) % Neut % (Auto) 62.0 (45-73) % Lymph % (Auto) 28.2 (20-40) % [place] % (Auto) 6.2 (2-11) % Eos % (Auto) 2.9 (0-4) % Baso % (Auto) 0.4 (0-2) % Lymph # (Auto) 2.9 (1.2-4.9) X10*3/uL [place] # (Auto) 0.6 (0.1-1.2) X10*3/uL Eos # (Auto) 0.3 (0.0-0.4) X10*3/uL Baso # (Auto) 0.0 (0.0-0.2) X10*3/uL Abs Immat Gran (auto) 0.03 (0.00-0.03) X10*3/uL Absolute Neuts (auto) 6.3 (2.0-8.3) x10*3/uL Absolute Nucleated RBC 0.000 (0.0-0.012) X10*3/uL Nucleated RBC % (auto) 0.0 (0.0-0.2) /100WBC Sodium 139 (135-145) mmol/L Potassium 3.8 (3.3-5.1) mmol/L Chloride 109 H (96-108) mmol/L Carbon Dioxide 25 (22-29) mmol/L Anion Gap 9 L (12-20) BUN 8 L (9-16) mg/dL Creatinine 0.68 (0.5-1.4) mg/dL Estim Creat Clear Calc 126.9 Estimated GFR > 60 Random Glucose 76 (60-115) mg/dL Calcium 9.0 (8.4-10.2) mg/dL Magnesium 1.9 (1.6-2.6) mg/dL Total Bilirubin 0.5 (0.0-1.0) mg/dL AST 20 (5-31) U/L ALT 33 H (0-31) U/L Alkaline Phosphatase 56 (39-117) U/L Troponin I High Sens < 2.7 (<3.5-17.0) ng/L Total Protein 7.2 (6.5-8.0) g/dL Albumin 4.5 (3.5-5.0) g/dL Lipase 28 (8-78) U/L Influenza Type A (PCR) NEGATIVE (Negative) Influenza Type B (PCR) NEGATIVE (Negative) RSV RNA Qual (PCR) NEGATIVE (Negative) SARS-CoV-2 RNA (RT-PCR) NEGATIVE (Negative) Independent Interpretation I performed an independent interpretation of an: EKG and Plain X-Ray Interpretation: My independent interpretation of the chest x-ray reveals no consolidations, pulmonary edema, pleural effusion, pneumothorax, obvious bony abnormalities. My independent interpretation of the ECG reveals normal sinus rhythm with rate of 68, normal axis, normal intervals, no ST elevations or depressions to suggest ischemic changes, relatively unchanged from previous on 10/25/2024. Radiology Impression Discussion of test interpretation with radiology: I have reviewed the radiologist's reading. Independent Historian Clinical information obtained from an independent historian. History obtained from or confirmed by: Friend External Record Review External record reviewed: Inpatient record Prescription Management I considered prescription management with: Pain Medication Chronic Conditions Patient?s care impacted by: Other (Epilepsy) Social Determinants Patient?s care significantly limited by Social Determinants of Health including: Other Social Determinant of Health Discharge Plan Discharge Clinical Impression: Atypical chest pain, Costalchondritis Patient Disposition: Home, Self-Care Instructions: Chest Wall Pain (ED) Additional Instructions: DIAGNOSIS & TREATMENT: You were seen in the Emergency Department for your chest discomfort. We performed an EKG, laboratory work and chest xray which did not reveal any acute abnormalities that would explain your symptoms. FURTHER CARE: We have not found any emergent physical exam or lab abnormalities that would require admission to the hospital today. Many people who come to the ER with chest discomfort do not leave with a specific diagnosis at the end of their visit. In the Emergency Department we try to make sure that there is no emergent problem that needs admission to the hospital or antibiotics right now. This does not mean that your evaluation is complete--please be sure to follow up with your regular doctor as additional testing as an outpatient may be indicated. Please be certain to drink plenty of fluids over the next several days. WHEN YOU SHOULD BE SEEN NEXT: Please follow-up with your primary care provider within the next 2-3 days for reevaluation of your symptoms. WHEN TO RETURN TO THE ED: Monitor your symptoms closely and return to the emergency department immediately for any new/worsening symptoms including: Worsening chest pain, difficulty breathing, fevers greater than 100 degrees, passing out, any new symptom that concerns you. Call 911 with any medical emergency. Prescriptions: No Action lacosamide 100 mg tablet 200 mg PO DAILY acetaminophen [Tylenol Extra Strength] 500 mg tablet 1,000 mg PO Q6H PRN (Reason: fever or pain) Qty: 20 0RF ibuprofen 400 mg tablet 400 mg PO TID PRN (Reason: fever or pain) Qty: 30 0RF ondansetron 4 mg tablet,disintegrating 4 mg PO Q6-8H PRN (Reason: nausea and vomiting) Qty: 14 0RF albuterol sulfate 90 mcg/actuation HFA aerosol inhaler 2 puff inhalation Q6H PRN (Reason: shortness of breath or wheezing) Qty: 8.5 0RF prednisone 20 mg tablet 40 mg PO DAILY Qty: 10 0RF lorazepam [Ativan] 0.5 mg tablet 0.5 mg PO BEDTIME PRN (Reason: anxiety/sleep) Qty: 20 0RF Interventions: ED Discharge Assessment Last Done: 08/30/25 01:05 Discharge Date/Time: 08/30/25 01:06 Print Language: Djib[place]ian
--- NOTE | 2025-08-29 22:46 | PC.NURSE ---
Pt a&ox4, no signs of distress. Pt denies pain at this time, reports cp happens intermittently Pts family at bedside Plan of care ongoing.
[2025-08-29 22:47] LABS: MANUAL DIFF FLAG NO
[2025-08-29 22:54] LABS: Hematocrit 37.4 % (37.0-47.0); Hemoglobin 11.8 g/dl (12.0-16.0); Imm Gran Abs Auto 0.03 X10*3/uL (0.00-0.03); Imm Gran Pct Auto 0.3 % (0.0-0.4); Lymphocytes Absolute Auto 2.9 X10*3/uL (1.2-4.9); Mean Corpuscular HGB Conc 31.6 g/dl (31.0-35.0); Mean Corpuscular Hemoglobin 26.2 pg (27.0-33.0); Mean Corpuscular Volume 82.9 fL (80.0-98.0); NRBC Abs Auto 0.000 X10*3/uL (0.0-0.012); NRBC Pct Auto 0.0 /100WBC (0.0-0.2); Platelet Count 289 X10*3/uL (160-400); Red Blood Count 4.51 X10*6/uL (4.20-5.50); White Blood Count 10.2 X10*3/uL (4.8-10.8)
[2025-08-29 23:02] LABS: Alanine Aminotransferase 33 U/L (0-31); Albumin Level 4.5 g/dL (3.5-5.0); Alkaline Phosphatase 56 U/L (39-117); Anion Gap 9 (12-20); Aspartate Amino Transferase 20 U/L (5-31); Blood Urea Nitrogen 8 mg/dL (9-16); Calcium 9.0 mg/dL (8.4-10.2); Carbon Dioxide 25 mmol/L (22-29); Chloride 109 mmol/L (96-108); Creatinine Clr Calc Pharmacy 126.9; Estimated Glomerular Filt Rate > 60; Lipase 28 U/L (8-78); Magnesium 1.9 mg/dL (1.6-2.6); Potassium 3.8 mmol/L (3.3-5.1); Sodium 139 mmol/L (135-145); Total Protein 7.2 g/dL (6.5-8.0)
[2025-08-29 23:09] LABS: Troponin-I High Sensitivity < 2.7 ng/L (<3.5-17.0)
[2025-08-29 23:30] LABS: Resp Syncy Virus RNA Qual PCR NEGATIVE (Negative); SARS COV2 PCR INHOUSE NEGATIVE (Negative)
[2025-08-29 23:55] VITALS: BP 111/65; PULSE 76; RESP 18; TEMP 36.9; O2SAT 100
[2025-08-30 01:05] VITALS: BP 111/65; PULSE 76; RESP 18; TEMP 36.9; O2SAT 100
== END 2025-08-30 01:06 | disposition home or self-care (01) ==
PROVIDERS: Emergency Provider Emergency Medicine
DX: R07.89 Other chest pain (principal); M94.0 Chondrocostal junction syndrome [Tietze]; J45.909 Unspecified asthma, uncomplicated; Z03.818 Encounter for observation for suspected exposure to other biological agents ruled out
CPT/HCPCS: 71046; 80053; 83690; 83735; 84484; 85025; 87637; 93005; 99283; 99285

== ENCOUNTER → 2025-08-29 21:47 | Outpatient (BNV) | payer OTHER, SELFPAY | PROVIDERS: Emergency Provider Emergency Medicine; Visit Provider Internal Medicine Cardiovascular Disease | DX: R07.9 Chest pain, unspecified (principal) | CPT/HCPCS: 93010 ==

== ENCOUNTER → 2025-08-29 22:13 | Outpatient (BNV) | payer OTHER, SELFPAY | PROVIDERS: Emergency Provider Emergency Medicine; Visit Provider General Practice | DX: R07.9 Chest pain, unspecified (principal) | CPT/HCPCS: 71046 ==